=== PATIENT | male | born 1930 | race Caucasian/White ===

== ENCOUNTER 2018-09-26 12:30 | Emergency (ER) | payer MEDICARE, OTHER ==
[~2018-09-26] VITALS: Ht 190.5 cm; Wt 97.5 kg
[~2018-09-26 12:30] MED LIST: AUGMENTIN 875-1 EACH; COZAAR25 MG; LEVOTHYROXINE125 MCG; NEURONTIN300 MG PO; WARFARIN SODIUM5 MG
[2018-09-26] MEDS ORDERED: RANITIDINE HCL150 MG PO (12:52)
[2018-09-26] MEDS ORDERED: ISOSORBIDE MONO30 MG PO (12:54)
--- NOTE | 2018-09-26 17:03 | EKG ---
[facility] [address] [facility] [place] [id number] Signed Atrial fibrillation with premature ventricular or aberrantly conducted complexes Nonspecific intraventricular conduction delay Nonspecific ST and T wave abnormality Abnormal ECG When compared with ECG of 01-JUL-2018 09:39, No significant change was found Confirmed by LIZZETTE ROBLES DO ([id number]) on 09/26/2018 5:03:34 PM Electronically Signed By: LIZZETTE ROBLES DO 09/26/18 1703 PATIENT NAME: DAMON POWER Electrocardiogram DATE OF : 34 PHYSICIAN: LIZZETTE ROBLES DO REPORT #: [id number] REPORT IS CONFIDENTIAL AND NOT TO BE RELEASED WITHOUT AUTHORIZATION
== END 2018-09-26 16:00 | disposition home or self-care (01) ==
LOC: ED 12:30
DX: I12.9 Hypertensive chronic kidney disease with stage 1 through stage 4 chronic kidney disease, or unspecified chronic kidney disease (principal); N18.9 Chronic kidney disease, unspecified; D63.1 Anemia in chronic kidney disease; K92.1 Melena; I48.91 Unspecified atrial fibrillation; E78.00 Pure hypercholesterolemia, unspecified; Z79.01 Long term (current) use of anticoagulants; Z86.73 Personal history of transient ischemic attack (TIA), and cerebral infarction without residual deficits; Z87.891 Personal history of nicotine dependence; Z88.0 Allergy status to penicillin; Z79.899 Other long term (current) drug therapy
CPT/HCPCS: 71046; 80053; 81001; 84484; 85025; 85610; 93005; 93010; 99284-25